=== PATIENT | male | born 1960 | race Caucasian/White ===

== ENCOUNTER 2021-03-14 12:47 | Emergency (ER) | payer OTHER ==
[~2021-03-14 12:47] MED LIST: FLOMAX0.4 MG PO
[2021-03-14 16:50] LABS: BASOPHIL 0.6 % (0-2); EOSINOPHIL 0 % (0-5); HCT 48.1 % (42.0-52.0); HGB 16.3 g/dl (13.2-18.0); LYMPHOCYTE 16.5 % (15-48); MCH 31.2 pg (25.0-31.0); MCHC 33.9 g/dL (32.0-36.0); MCV 92.1 fL (78.0-100.0); MPV 11.7 fL (6.0-9.5); NEUTROPHIL 63.5 % (41-80); NRBC 0; PLT 153 K/uL (150-400); RBC 5.22 M/uL (4.70-6.00); RDW 12.1 % (11.5-14.0); WBC 4.7 K/uL (4.0-10.5)
[2021-03-14 17:39] LABS: BUN/CREAT RATIO (CALC) 14.4 RATIO; CREATININE 1.04 mg/dL (0.67-1.17)
[2021-03-14 17:41] LABS: BILIRUBIN NEGATIVE (NEGATIVE); BLOOD NEGATIVE Ery/uL (NEGATIVE); CLARITY CLEAR (CLEAR); COLOR YELLOW (YELLOW); GLUCOSE (U) NORMAL (NORMAL); LEUKOCYTES NEGATIVE Leu/uL (NEGATIVE); NITRITE NEGATIVE (NEGATIVE); PROTEIN TRACE (LOW) mg/dL (NEGATIVE); SPECIFIC GRAVITY >=1.030 (1.001-1.030); UROBILINOGEN 0.2 mg/dL (0.2-1.0)
[2021-03-14] MEDS ORDERED: TESSALON PERLE100 MG PO (21:26)
[2021-03-14] MEDS ORDERED: BACLOFEN 10MG T10 MG PO (21:26)
== END 2021-03-14 22:02 | disposition home or self-care (01) ==
LOC: FER 12:47
PROVIDERS: Nurse Practitioner Family
DX: U07.1 COVID-19 (principal); F17.220 Nicotine dependence, chewing tobacco, uncomplicated; Z23 Encounter for immunization; Z88.2 Allergy status to sulfonamides; Z86.73 Personal history of transient ischemic attack (TIA), and cerebral infarction without residual deficits
CPT/HCPCS: 36415; 70450; 71045; 80048; 81003; 85025; 94640; J1100; J7030; M0245; Q0245

== ENCOUNTER 2021-12-17 08:15 | Emergency (ER) | payer OTHER ==
[~2021-12-17 08:15] MED LIST changes: +BACLOFEN 10MG T10 MG PO; +TESSALON PERLE100 MG PO
[2021-12-17 09:05] LABS: EOSINOPHIL 10.5 % (0-5); HCT 41.8 % (42.0-52.0); HGB 13.9 g/dl (13.2-18.0); LYMPHOCYTE 22.1 % (15-48); MCHC 33.3 g/dL (32.0-36.0); MCV 93.1 fL (78.0-100.0); MONOCYTE 13.4 % (0-12); MPV 10.3 fL (6.0-9.5); NEUTROPHIL 51.4 % (41-80); NRBC 0; PLT 345 K/uL (150-400); RBC 4.49 M/uL (4.70-6.00); RDW 12.3 % (11.5-14.0); WBC 8.6 K/uL (4.0-10.5)
[2021-12-17 09:25] LABS: BUN/CREAT RATIO (CALC) 15.8 RATIO; CREATININE 0.95 mg/dL (0.67-1.17); POTASSIUM 3.9 mmol/L (3.5-5.1)
== END 2021-12-17 09:33 | disposition home or self-care (01) ==
LOC: FER 08:15
PROVIDERS: Internal Medicine
DX: R22.42 Localized swelling, mass and lump, left lower limb (principal); E78.5 Hyperlipidemia, unspecified; Z88.2 Allergy status to sulfonamides; Z79.899 Other long term (current) drug therapy
CPT/HCPCS: 36415; 80048; 85025; 93971